=== PATIENT | male | born 2005 | race Caucasian/White ===

== ENCOUNTER → 2024-06-04 | Emergency (ER) | payer OTHER ==
[~2024-06-04] MED LIST: CLARITIN-D1 TAB PO; DEXAMETHASONE 2 MG/TAB TAB PO ONE; IBUPROFEN600 MG PO; KETOROLAC TROMETHAMINE 30 MG/ML SDV IV ONE
[2024-06-04 22:47] VITALS: BP 124/80
== END | disposition home or self-care (01) ==
LOC: ED 20:07
DX: J02.9 Acute pharyngitis, unspecified (principal); Z20.822 Contact with and (suspected) exposure to COVID-19

== ENCOUNTER 2024-06-07 16:59 | Emergency (ER) | payer OTHER ==
[~2024-06-07] VITALS: Ht 162.6 cm; Wt 62.0 kg
[2024-06-07 17:06] VITALS: BP 136/81
[2024-06-07 17:15] VITALS: BP 123/88
[2024-06-07] MEDS ORDERED: DEXAMETHASONE SOD. PHOSPHATE 10 MG/ML VIAL IM ONE (17:15)
[2024-06-07] MEDS ORDERED: ONDANSETRON 4 MG/TAB ODT PO ONE (17:15)
[2024-06-07] MEDS ORDERED: KETOROLAC TROMETHAMINE 30 MG/ML SDV IM ONE (17:15)
[2024-06-07] MEDS ORDERED: CLARITIN-D1 TAB PO (18:03)
[2024-06-07] MEDS ORDERED: IBUPROFEN600 MG PO (18:03)
[2024-06-07 18:13] VITALS: BP 123/88
== END 2024-06-07 18:23 | disposition home or self-care (01) ==
LOC: ED 16:59
DX: J02.9 Acute pharyngitis, unspecified (principal); Z20.822 Contact with and (suspected) exposure to COVID-19; F17.290 Nicotine dependence, other tobacco product, uncomplicated
CPT/HCPCS: J1100